=== PATIENT | male | born 1945 | race Caucasian/White ===

== ENCOUNTER → 2019-03-16 | Outpatient (CLI) | payer OTHER ==
[~2019-03-16] VITALS: Ht 182.9 cm; Wt 89.4 kg
[~2019-03-16] MED LIST: AVALIDE 300-121 EACH PO; CRESTOR10 MG PO; FLONASE 0.05%50 MCG NARES; METFORMIN HCL500 M3 PO; NORVASC5 M1 PO; SINGULAIR 10 MG10 MG PO; TRILIPIX135 MG PO; ZETIA10 MG PO
[2019-03-16 10:22] VITALS: BP 194/87
[2019-03-16 10:53] LABS: HEMATOCRIT 42.7 % (42.0-52.0); HEMOGLOBIN 14.6 gm/dL (14.0-18.0); MCH 31.3 pg (26.0-34.0); MCHC 34.3 g/dL (28.0-37.0); MCV 91.2 fL (80.0-100.0); RBC 4.68 mil/uL (4.50-6.00); RDW 12.5 % (10.5-14.5); WBC 5.8 thou/uL (4.0-11.0)
[2019-03-16 11:03] LABS: CALCIUM 9.8 mg/dL (8.5-10.1); POTASSIUM 4.5 mmol/L (3.5-5.1)
--- NOTE | 2019-03-16 13:20 | NUR ---
RASHAUN GARRETT, HERE TO DISCUSS CASE WITH PT.
--- NOTE | 2019-03-16 15:03 | NUR ---
DISCHARGE INSTRUCTIONS GIVEN. PT VERBALIZED UNDERSTANDING. WAITING ON DR FOURNIER.
--- NOTE | 2019-03-23 14:18 | CATHLAB ---
[facility] [address] [place] [address] INVASIVE PROCEDURE REPORT Name: AMANDA DEWITT [id number] Admission: 03/16/19 Attend Phys: Carl Jenkins Discharge: Date of : 49 Report #: [id number] THIS REPORT FOR: //name// APPROVED REPORT Study performed: 03/16/2019 11:39:46 Patient Details Patient Status: Out-Patient Room #: The patient is a 73 year-old male Event Personnel Carl Ritchie Forensic Chemist, Lillian Li RN RN, Catrina James RTR Scrub, Ronit Matthew RTR Scrub, Amadou Rogers Monitor, Matthew Domingo superintendent quarry Performed Left Heart Cath w/or w/o Coronaries [id number] [facility], supervision of conscious sedation Indication Positive stress test, Chest pain Procedure Narrative The Right Groin^ was infiltrated with 1% Lidocaine subcutaneous anesthesia. A PINNACLE 4FR Sheath #[id number] sheath was inserted into the RFA^. Coronary angiography was performed using coronary diagnostic catheters. The right coronary system was accessed and visualized with a JR4 catheter. The left coronary system was accessed and visualized with a JL4 catheter. Left ventricular/Aortic Valve gradient assessed via catheter pullback. Hemostasis was obtained with manual pressure following sheath removal without any complications. The patient tolerated the procedure well and there were no complications associated with the procedure. There was no hematoma. Intraoperative Conscious Sedation Sedation start time: 11.443 Case end Time: 12.11 Versed 2 mg Fluoro Time: 3.40 minutes Dose: DAP 8316.00 cGycm2 1262 mGy Contrast Type and Amount: Omnipaque 60 ml [facility] [place] [address] INVASIVE PROCEDURE REPORT Name: AMANDA DEWITT JR Room #: [facility]#: [id number] Admission: 03/16/19 Attend Phys: Carl Jenkins Discharge: Date of : 49 Report #: [id number] Coronary Angiography The patient's coronary anatomy is right dominant. Diagnostic Cath Left Main Normal origin large caliber bifurcates that anterior descending left circumflex. This distal 30-40% eccentric plaque identified which is not flow-limiting LAD Moderate caliber type III vessel which in its ostial and proximal portion is heavily calcified. This is eccentric lesion appears to be at least 60% in diameter. At this point in time a small first diagonal branch originates and is involved in the lesion. The LAD proper continues on to the second diagonal branch origin and beyond this the LAD has an eccentric 75% stenosis that involves the origin of this moderate caliber second diagonal branch the LAD then continues on to the apex terminating in the posterior apical wall is small caliber vessel Diagonal 1 Small-caliber with mild diffuse proximal lesions noted Diagonal 2 Moderate caliber vessel with a 75% ostial ostial lesion after which the vessel. She's on internal wall free of high-grade disease Circumflex Moderate caliber vessel coursing the AV groove. Early marginal branch originates after a region of heavy calcifications involve the origin of this first marginal branch. There appears to be a lesion of about 50% although poorly visualized. It then continues on giving rise to posterior wall branch without high-grade lesion OM1 Moderate caliber vessel that has a proximal lesion noted as described above OM2 Moderate caliber vessel free of high-grade disease Right Coronary Large-caliber dominant vessel of normal origin procedures and prior to the acute margin is a napkin ring lesion which is noted. Appears to delay floats is slightly. He is having continuous posterior to the crux gives rise to posterior descending artery and posterior wall circulation which are small in diameter R PDA Very small caliber vessel without significant high-grade lesions noted Left Ventriculography Left Ventriculography was not performed. Hemodynamics The aortic pressure is 199/61 mmHg with a mean of 91 mmHg. The left ventricular pressure is 178/11 mmHg with a mean of mmHg. The left ventricular end diastolic pressure is 14 mmHg. There was no gradient across the aortic valve upon pullback. Pullback from the left [facility] [address] [place] [address] INVASIVE PROCEDURE REPORT Name: AMANDA DEWITT JR Room #: REG Leslee#: [id number] Admission: 03/16/19 Attend Phys: Carl Jenkins Discharge: Date of : 49 Report #: [id number] ventricle to the aorta revealed no gradient across the aortic valve. Conclusion 1. Coronary disease, severe involving the proximal and mid LAD proximal RCA and possibly left circumflex 2. Abnormal hemodynamics with elevated left ventricular end-diastolic pressures Recommendations CABG <ELECTRONICALLY SIGNED> By: Carl Ritchie MD 03/23/19 1418 1418 141 Carl Ritchie MD /INF
--- NOTE | 2019-03-27 07:36 | HC ---
[facility] [place] [address] CONSULTATION Name: AMANDA DEWITT JR Room #: REG [facility]#: [id number] Admission: 03/16/19 Attend Phys: Carl Ritchie Discharge: Date of : 49 Report #: [id number] THIS REPORT FOR: //name// CC: Carl Valdes Coffey DATE OF SERVICE: 03/16/2019 We were asked by Dr. Ritchie to see the patient. HISTORY OF PRESENT ILLNESS: The patient is a 73-year-old with progressive shortness of breath on exertion. The patient denies chest pain. The patient originally came to attention of Cardiology because of ventricular premature contractions. The patient also has a history of hypertension and dyslipidemia. Cardiac catheterization on 03/16/2019 demonstrated severe multifocal left anterior descending stenosis. In addition, there is more modest circumflex and right coronary artery disease. Left ventricular function not assessed by ventriculogram. As mentioned, past history is positive for hypertension and dyslipidemia. MEDICATIONS: Medication at home includes Norvasc, Trilipix, Zetia, Avalide, metformin, Singulair, and Crestor. ALLERGIES: None known. FAMILY HISTORY: Mother had heart disease. Father had diabetes. SOCIAL HISTORY: The patient is . He is a never smoker. REVIEW OF SYSTEMS: GENERAL: Negative. CONSTITUTIONAL: Denies fever, weight change. EYES: Denies vision changes. HEENT: Denies headache, vertigo, hearing problems. RESPIRATORY: As mentioned shortness of breath with exertion. CARDIAC: Denies angina. We do note PVCs. SKIN: Denies rash or infection. ENDOCRINE: No tremor, no goiter. PSYCHIATRIC: No hallucination, depression, anxiety. MUSCULOSKELETAL: No bone or joint pain. IMMUNOLOGIC: No arthritides or lupus. PHYSICAL EXAMINATION: VITAL SIGNS: The patient is a pleasant fellow. He is hypertensive with a blood [facility] [address] [place] [address] CONSULTATION Name: AMANDA DEWITT Kiah NUNEZ Room #: REG [facility]#: [id number] Admission: 03/16/19 Attend Phys: Carl Ritchie Discharge: Date of : 49 Report #: [id number] pressure of 194/87, heart rate 55, respiratory rate 18, temperature 98, O2 sat 97 on room air. HEENT: No scleral icterus, no arcus. NECK: No mass, no bruit. CHEST: Clear. HEART: Rhythm regular. ABDOMEN: Soft. EXTREMITIES: No clubbing, cyanosis or edema. MUSCULOSKELETAL: No bone or joint asymmetry or deformity. NEUROLOGIC: No motor or sensory dysfunction. PSYCHIATRIC: Shows insight into problem and is oriented and appropriate and pleasant. I reviewed the cardiac catheterization findings with the patient in view of his symptoms. I have contrasted several courses, which would include simple observation, maintenance on medicine, angioplasty, and surgery. Bypass surgery would have the advantage of most definitively treating multivessel disease in a diabetic. Risks and details of surgery were discussed. Options and alternatives were reviewed. Risks include but are not limited to bleeding, infection, anesthesia risks, heart and lung problems, stroke and . The patient understands all of this and he wishes to proceed with the surgery. It is a privilege to participate in this nice fellow's care. Please let us know if we can be of further assistance. Thank you for the consult. <ELECTRONICALLY SIGNED> By: Epifanio Mares MD 03/27/19 0736 1018 1106 Epifanio Mares MD /nt
== END | disposition home or self-care (01) ==
LOC: CATH 09:29
PROVIDERS: Internal Medicine
DX: R07.9 Chest pain, unspecified (principal); I25.10 Atherosclerotic heart disease of native coronary artery without angina pectoris; R94.39 Abnormal result of other cardiovascular function study; I11.0 Hypertensive heart disease with heart failure; I50.1 Left ventricular failure, unspecified; E78.5 Hyperlipidemia, unspecified; E11.9 Type 2 diabetes mellitus without complications; Z98.890 Other specified postprocedural states; Z79.899 Other long term (current) drug therapy

== ENCOUNTER → 2019-03-22 | Outpatient (CLI) | payer OTHER | LOC: ULTRA 13:10 | DX: Z01.818 Encounter for other preprocedural examination (principal); I25.119 Atherosclerotic heart disease of native coronary artery with unspecified angina pectoris ==

== ENCOUNTER 2019-03-29 05:55 | Inpatient (IN) | payer OTHER ==
[2019-03-22 14:08] LABS: ABSOLUTE NEUTROPHILS 2.8 thou/uL (1.4-8.2); BASOPHILS 0.7 % (0.0-2.0); EOSINOPHILS 5.2 % (0.0-3.0); HEMATOCRIT 44.3 % (42.0-52.0); LYMPHOCYTES 35.8 % (24.0-44.0); MCH 31.1 pg (26.0-34.0); MCHC 33.8 g/dL (28.0-37.0); MONOCYTES 9.4 % (1.0-8.0); PLATELET COUNT 137 thou/uL (150-400); POLYS 48.9 % (36.0-66.0); RBC 4.81 mil/uL (4.50-6.00); RDW 12.9 % (10.5-14.5); WBC 5.8 thou/uL (4.0-11.0)
[2019-03-22 14:22] LABS: URINE BILIRUBIN NEGATIVE (Negative); URINE BLOOD NEGATIVE (Negative); URINE CLARITY CLEAR; URINE COLOR YELLOW; URINE GLUCOSE-RANDOM* 2+ (Negative); URINE KETONES NEGATIVE (Negative); URINE LEUKOCYTES-REFLEX NEGATIVE (Negative); URINE NITRITE-REFLEX NEGATIVE (Negative); URINE PROTEIN (DIPSTICK) NEGATIVE (Negative); URINE SPECIFIC GRAVITY >= 1.030 (1.005-1.035); URINE UROBILINOGEN 0.2 E.U./dl (0.2-1.0)
[2019-03-22 14:28] LABS: APTT 27.3 Seconds (24.5-32.8); PROTIME 10.2 Seconds (9.3-11.4)
[2019-03-22 14:39] LABS: ALBUMIN 4.1 g/dL (3.4-5.0); CREATININE 0.9 mg/dL (0.7-1.3); POTASSIUM 4.1 mmol/L (3.5-5.1); TOTAL BILIRUBIN 0.5 mg/dL (<0.1-1.0); TOTAL PROTEIN 7.9 g/dL (6.4-8.2)
[2019-03-23 01:10] LABS: GLYCOHEMOGLOBIN (HGB A1C) 7.1 % (4.8-5.6)
--- NOTE | 2019-03-23 08:30 | EKG ---
[facility] [place] [address] ELECTROCARDIOGRAM REPORT Name: AMANDA DEWITT Kiah NUNEZ Room #: PRE IN ..#: [id number] Admission: Attend Phys: Epifanio Mares MD Discharge: Date of : 49 Report #: [id number] THIS REPORT FOR: //name// [facility] Test Date: 2019-03-22 Test Time: 14:00:35 Pat Name: AMANDA DEWITT Department: Room: Gender: M Furniture Sales Associate: DIALLO WHITE : 1945 Requested By: Epifanio Mares Order Number: [id number] MD: Dwain Garcia Measurements Intervals [place] Rate: 54 P: -1 RI: 248 QRS: 22 QRSD: 112 T: 106 QT: 474 QTc: 450 Interpretive Statements Sinus rhythm Ventricular trigeminy Prolonged RI interval Abnormal T, consider ischemia, lateral leads No previous ECG available for comparison Electronically Signed On 03-23-2019 8:29:50 LVN LPN by Dwain Garcia [email or web address] <ELECTRONICALLY SIGNED> By: Dwain Garcia MD, [facility] 03/23/[address] [facility] Dwain Garcia MD, FACC /EPI
[2019-03-29] VITALS (9 sets, daily range): BP systolic 91–132; BP diastolic 27–95
[~2019-03-29] VITALS: Ht 182.9 cm; Wt 92.5 kg
[2019-03-29 12:31] LABS: MCH 31.8 pg (26.0-34.0); MCHC 34.2 g/dL (28.0-37.0); MCV 92.9 fL (80.0-100.0); RBC 3.08 mil/uL (4.50-6.00); RDW 12.5 % (10.5-14.5); WBC 9.2 thou/uL (4.0-11.0)
[2019-03-29 12:34] LABS: HEMATOCRIT 28.6 % (42.0-52.0); HEMOGLOBIN 9.8 gm/dL (14.0-18.0)
[2019-03-29 12:47] LABS: APTT 25.2 Seconds (24.5-32.8); FIBRINOGEN 133.3 mg/dL (210-360); INR 1.5
[2019-03-29 12:50] LABS: PROTIME 15.4 Seconds (9.3-11.4)
[2019-03-29 13:13] LABS: POC BE 0 mmol/L (-2.0 to +3.0); POC CA IONIZED 4.9 mg/dL (4.5-5.3); POC GLUCOSE 150 mg/dL (70-99); POC HCO3 25.9 mmol/L (22.0-26.0); POC HEMOGLOBIN 12.2 g/dL (14.0-18.0); POC POTASSIUM 4.6 mmol/L (3.5-5.1); POC SODIUM 137 mmol/L (136-145); POC pCO2 47.8 mmHg (35.0-45.0); POC pH 7.341 (7.360-7.450)
[2019-03-29 13:13] LABS: POC BE -1 mmol/L (-2.0 to +3.0); POC CA IONIZED 4.8 mg/dL (4.5-5.3); POC GLUCOSE 146 mg/dL (70-99); POC HCO3 24.6 mmol/L (22.0-26.0); POC HEMOGLOBIN 12.2 g/dL (14.0-18.0); POC POTASSIUM 4.7 mmol/L (3.5-5.1); POC SODIUM 138 mmol/L (136-145); POC pCO2 45.8 mmHg (35.0-45.0); POC pH 7.338 (7.360-7.450)
[2019-03-29 13:14] LABS: POC BE 0 mmol/L (-2.0 to +3.0); POC CA IONIZED 4.5 mg/dL (4.5-5.3); POC GLUCOSE 138 mg/dL (70-99); POC HEMOGLOBIN 9.9 g/dL (14.0-18.0); POC SODIUM 138 mmol/L (136-145); POC pCO2 41.5 mmHg (35.0-45.0); POC pH 7.388 (7.360-7.450)
[2019-03-29 13:14] LABS: POC BE -1 mmol/L (-2.0 to +3.0); POC CA IONIZED 4.4 mg/dL (4.5-5.3); POC GLUCOSE 137 mg/dL (70-99); POC HEMOGLOBIN 9.9 g/dL (14.0-18.0); POC POTASSIUM 4.8 mmol/L (3.5-5.1); POC SODIUM 136 mmol/L (136-145); POC pCO2 48.3 mmHg (35.0-45.0); POC pH 7.323 (7.360-7.450)
[2019-03-29 13:14] LABS: POC BE 0 mmol/L (-2.0 to +3.0); POC CA IONIZED 4.4 mg/dL (4.5-5.3); POC GLUCOSE 148 mg/dL (70-99); POC HCO3 24.9 mmol/L (22.0-26.0); POC HEMOGLOBIN 8.8 g/dL (14.0-18.0); POC POTASSIUM 4.7 mmol/L (3.5-5.1); POC SODIUM 136 mmol/L (136-145); POC pCO2 40.6 mmHg (35.0-45.0); POC pH 7.396 (7.360-7.450)
[2019-03-29 13:14] LABS: POC BE 1 mmol/L (-2.0 to +3.0); POC CA IONIZED 4.5 mg/dL (4.5-5.3); POC GLUCOSE 139 mg/dL (70-99); POC HEMOGLOBIN 9.5 g/dL (14.0-18.0); POC POTASSIUM 4.7 mmol/L (3.5-5.1); POC SODIUM 138 mmol/L (136-145); POC pCO2 38.2 mmHg (35.0-45.0); POC pH 7.424 (7.360-7.450)
[2019-03-29 13:14] LABS: POC BE -5 mmol/L (-2.0 to +3.0); POC CA IONIZED 4.9 mg/dL (4.5-5.3); POC GLUCOSE 136 mg/dL (70-99); POC HCO3 21.2 mmol/L (22.0-26.0); POC HEMOGLOBIN 10.5 g/dL (14.0-18.0); POC POTASSIUM 4.1 mmol/L (3.5-5.1); POC SODIUM 139 mmol/L (136-145); POC pCO2 40.2 mmHg (35.0-45.0); POC pH 7.331 (7.360-7.450)
[2019-03-29 13:14] LABS: POC BE 1 mmol/L (-2.0 to +3.0); POC CA IONIZED 4.9 mg/dL (4.5-5.3); POC GLUCOSE 178 mg/dL (70-99); POC HCO3 25.4 mmol/L (22.0-26.0); POC HEMOGLOBIN 12.6 g/dL (14.0-18.0); POC POTASSIUM 4.7 mmol/L (3.5-5.1); POC SODIUM 137 mmol/L (136-145); POC pCO2 39.7 mmHg (35.0-45.0); POC pH 7.413 (7.360-7.450)
[2019-03-29 13:14] LABS: POC BE -4 mmol/L (-2.0 to +3.0); POC CA IONIZED 5.1 mg/dL (4.5-5.3); POC GLUCOSE 157 mg/dL (70-99); POC HCO3 21.8 mmol/L (22.0-26.0); POC HEMOGLOBIN 9.2 g/dL (14.0-18.0); POC POTASSIUM 4.2 mmol/L (3.5-5.1); POC SODIUM 138 mmol/L (136-145); POC pCO2 40.5 mmHg (35.0-45.0); POC pH 7.338 (7.360-7.450)
[2019-03-29 13:48] LABS: BE(vivo) -6.2 mmol/L (-2 to +3); HCO3 20.6 mmol/L (22.0-26.0); PCO2 45.9 mmHg (35.0-45.0); sO2 98.2 % (92.0-98.0)
[2019-03-29 14:15] LABS: APTT 26.4 Seconds (24.5-32.8); INR 1.2; PROTIME 12.2 Seconds (9.3-11.4)
[2019-03-29 14:16] LABS: CALCIUM 8.4 mg/dL (8.5-10.1); MAGNESIUM 2.3 mg/dL (1.8-2.4); POTASSIUM 4.2 mmol/L (3.5-5.1)
[2019-03-29 16:46] LABS: BE(vivo) -8.1 mmol/L (-2 to +3); PCO2 33.2 mmHg (35.0-45.0); PO2 112.8 mmHg (80.0-100.0); sO2 97.9 % (92.0-98.0)
[2019-03-29 16:47] LABS: pH 7.326 (7.360-7.450)
--- NOTE | 2019-03-29 17:14 | NUR ---
1345: PT TO ROOM WITH OR STAFF, DR. SALAS, DR. FOURNIER AND SAMAN GARRETT PRESENT. PT PLACED ON MONITOR. NO DRIPS INFUSING AT THIS TIME. INITIAL BLOOD PRESSURE 92/43. HR 41 - PER DR. MALONE AND DR. FOURNIER PT HEART RATE HAS BEEN BRADYCARDIC AND NO NEED TO PACER IF BLOOD PRESSURES MAINTAIN IN APPROPRIATE LIMITS. CHEST TUBE MARKED AND PLACED TO -20 SUCTION. RT AT BEDSIDE TO PLACE PATIENT ON VENT. SETTINGS 600/12/60/5/. AVNI HUGGER PLACED. 1400: 1 BOTTLE ALBUMIN GIVEN. ABG'S COMMUNICATED TO DR. FOURNIER AT BEDSIDE. ORDERS TO INCREASE VENT RATE TO 16 1500: ADDITIONAL BOTTLE ALBUMIN GIVE. PT WAKING UP, WIGGLING TOES. 1515: BLOOD SUGAR 174 - INSULIN GTT INITIATED AT 2 UNIT/HR. PACEMAKER TURNED ON, FOR HYPOTENSION AND BRADYCARDIA 1530: DR FOURNIER UPDATED ON PT STATUS, PT STARTED ON LEVOPHED 1600: DR. FOURNIER IN PT ROOM. TURNED PACEMAKER OFF. UNDERLYING RHYTHM IRREGULAR IN THE 40'S, PRESSURES MAINTAINING ON 2 MCG LEVOPHED. CPAP TRIAL INITATED BY RT. SEE ICU FLOW SHEET FOR VITAL SIGNS AND MEDICATION TITRATIONS. HOURLY OUTPUTS RECORDED.
[2019-03-29 17:36] LABS: BE(vivo) -3.9 mmol/L (-2 to +3); HCO3 20.9 mmol/L (22.0-26.0); PCO2 37.4 mmHg (35.0-45.0); PO2 131.8 mmHg (80.0-100.0); pH 7.366 (7.360-7.450); sO2 98.6 % (92.0-98.0)
[2019-03-29 17:47] LABS: HEMATOCRIT 31.5 % (42.0-52.0); HEMOGLOBIN 10.8 gm/dL (14.0-18.0); MCH 31.5 pg (26.0-34.0); MCHC 34.2 g/dL (28.0-37.0); MCV 92.1 fL (80.0-100.0); RBC 3.42 mil/uL (4.50-6.00); RDW 12.4 % (10.5-14.5); WBC 11.1 thou/uL (4.0-11.0)
[2019-03-29 17:52] LABS: CALCIUM 8.4 mg/dL (8.5-10.1); CREATININE 1.1 mg/dL (0.7-1.3); POTASSIUM 4.2 mmol/L (3.5-5.1)
--- NOTE | 2019-03-29 18:10 | NUR ---
PT EXTUBATED AT 1745 BY RT. TOLERATED WELL. ON FACESHIELD AT 50 PERCENT. LEVOPHED RESTARTED. FENTANYL GIVEN FOR PAIN. PT CURRENTLY RESTING COMFORTABLY.
[2019-03-30] VITALS (18 sets, daily range): BP systolic 99–160; BP diastolic 34–143
[2019-03-30 06:16] LABS: HEMATOCRIT 31.4 % (42.0-52.0); HEMOGLOBIN 10.9 gm/dL (14.0-18.0); MCH 31.9 pg (26.0-34.0); MCHC 34.6 g/dL (28.0-37.0); MCV 92.4 fL (80.0-100.0); RBC 3.4 mil/uL (4.50-6.00); RDW 12.6 % (10.5-14.5); WBC 9.3 thou/uL (4.0-11.0)
[2019-03-30 06:31] LABS: CALCIUM 8.3 mg/dL (8.5-10.1); CREATININE 1.1 mg/dL (0.7-1.3); MAGNESIUM 2.2 mg/dL (1.8-2.4); POTASSIUM 4.3 mmol/L (3.5-5.1)
--- NOTE | 2019-03-30 07:45 | NUR ---
SEE CRITICAL CARE FLOWSHEET FOR VS, HEMODYNAMICS AND EVENTS. PT PAIN CONTROLLED WELL WITH HYDROCODONE. ON 8L HFC FROM FS. GOOD COUGH EFFORT, OCCAS PRODUCTIVE. USING YAUNKER. IS UP TO 500. MINIMAL DRNGE FROM MSCT ET PLEURAL. CONTROLLED BP WITH CARDENE TO KEEP <160. UO ADEQUATE. BLOOD SUGARS CONTROLLED WITH INSULIN GTT-SEE BS FLOWSHEET FOR GTT RATE. AWAITING OFF CARDENE TO GET UP TO CHAIR. SEE Web Designed Rooms FOR COMPLETE ASSESSMENT
--- NOTE | 2019-03-30 08:07 | EKG ---
[place] [address] [email or web address] [place] [address] ELECTROCARDIOGRAM REPORT Name: AMANDA DEWITT Room #: 242-P ADM IN M.R.#: [id number] Admission: 03/29/19 Attend Phys: Epifanio Mares MD Discharge: Date of : 49 Report #: [id number] THIS REPORT FOR: //name// [facility] Test Date: 2019-03-29 Test Time: 16:49:39 Pat Name: AMANDA DEWITT Department: Room: [facility] Gender: M Substitute Bus Driver: Raquel AYON : 1945 Requested By: Gerry Palomino Order Number: [id number] MD: Dwain Garcia Measurements Intervals [place] Rate: 44 P: [place]: QRS: 56 QRSD: 113 T: 53 QT: 553 QTc: 473 Interpretive Statements Junctional rhythm Borderline intraventricular conduction delay Compared to ECG 03/22/2019 14:00:35 Sinus rhythm no longer present Ventricular premature complex(es) no longer present Electronically Signed On 03-30-2019 8:07:11 LINUX UNIX SYSTEM ADMINISTRATOR by Dwain Garcia [email or web address] <ELECTRONICALLY SIGNED> By: Dwain Garcia MD, [facility] 03/30/19 08 48 48 Dwain Garcia MD, [facility] /EPI
--- NOTE | 2019-03-30 08:14 | EKG ---
[place] [address] [email or web address] [address] ELECTROCARDIOGRAM REPORT Name: AMANDA DEWITT Room #: 242-P ADM IN M.R.#: [id number] Admission: 03/29/19 Attend Phys: Epifanio Mares MD Discharge: Date of : 49 Report #: [id number] THIS REPORT FOR: //name// [facility] Test Date: 2019-03-30 Test Time: 07:12:01 Pat Name: AMANDA DEWITT Department: Room: 242 P Gender: M Cancer Spec: Kiah OLVERA : 1945 Requested By: Gerry Palomino Order Number: [id number] MD: Dwain Garcia Measurements Intervals [place] Rate: 49 P: 0 GA: 119 QRS: 20 QRSD: 110 T: 29 QT: 469 QTc: 424 Interpretive Statements Sinus rhythm with competing junctional rhythm Ventricular trigeminy Borderline short GA interval Left ventricular hypertrophy No previous ECGs available for comparison Electronically Signed On 03-30-2019 8:14:26 DIRECTOR HOME HEALTH by Dwain Garcia [email or web address] <ELECTRONICALLY SIGNED> By: Dwain Garcia MD, [facility] 03/30/1914 1 1 Dwain Garcia MD, [facility] /EPI
--- NOTE | 2019-03-30 09:09 | NUR ---
Nutrition: S/P CABG x 5. POD 1. Consult received for diet instruction. RD will followup when closer to D/C and out of ICU to assess education needs.
--- NOTE | 2019-03-30 12:42 | NUR ---
Case opened to follow for dc planning. Pt is currently in ICU s/p CABGx5 yesterday. Transfer And Line Up Worker visited with the pt and his in the room. Pt currently extubated and up in the chair. He indicates that he is retired and remains active. He is indep with gait and adl's and drives. His is supportive and able to help care for him at dc. Cm role introduced. Therapy has started working with the pt. He does have a flight of stairs to his bedroom and bath. His goal is to dc home with outpt f/u. Will follow along should dc needs arise.
--- NOTE | 2019-03-30 16:11 | NUR ---
ASSUMED CARE @ 0700 03/30/19, PT ASSESSMENTS AND VSS COMPLETE PER ICU PROTOCOL. AT INTIAL ENCOUNTER PT STILL IN BED, SWAN @ [address] CARDENE, INSULIN AND FLUIDS STILL RUNNING. PT ON 8L OF 02 SATS IN THE HIGH 80'S, RASHAUN TO THE BEDSIDE. CARDENE, INSULIN AND FLUIDS GTT DC'D. SWAN DC'D @ 0830 NO COMPLICATIONS NOTED. 1310, ARTERIAL SBP 160-170, RASHAUN CALLED, NORVASC ORDERED. MEDIATINAL CHEST TUBES OUTPUT 15-20ML/HR, TUBE D'CD @ 1545, NO COMPLICATIONS NOTED.
[2019-03-31] VITALS (14 sets, daily range): BP systolic 113–148; BP diastolic 41–65
--- NOTE | 2019-03-31 05:42 | NUR ---
AOX4. MEDICATED FOR PAIN RELIEF. FEBRILE DURING THE NIGHT. BP STABLE, SYSTOLIC WIHTIN THE 120S TO 130S. ON 5L, NO SOA WHILE AT REST. PLUERAL CT IN PLACE, OUTPUT NOTED HOURLY. INCISION SITES DRESSING C/D/I. PT PROGRESSING TOWARDS GOALS. WILL CONTINUE TO MONITOR.
[2019-03-31 05:43] LABS: HEMATOCRIT 29.8 % (42.0-52.0); HEMOGLOBIN 10.1 gm/dL (14.0-18.0); MCH 31.5 pg (26.0-34.0); MCHC 33.8 g/dL (28.0-37.0); RBC 3.2 mil/uL (4.50-6.00); RDW 12.9 % (10.5-14.5); WBC 7.4 thou/uL (4.0-11.0)
[2019-03-31 05:52] LABS: CALCIUM 8.6 mg/dL (8.5-10.1); CREATININE 1.1 mg/dL (0.7-1.3); POTASSIUM 4.7 mmol/L (3.5-5.1)
--- NOTE | 2019-03-31 12:55 | NUR ---
0700-ASSUMMED CARE OF PT.--VW 0900-PT UP IN CHAIR ON MY ARRIVAL. DIVYACV STATION OPERATOR,RASHAUN,ELLIOTT PA,AVTAR FOURNIER & RITU IN TO SEE.--VW 1130-WALKED IN ROOM BY Luke EARLIER. IMPROVING W PULM TOILET.MUCH ENC GIVEN.INSTRUCTED NOT TO LET PAIN GET AHEAD OF HIM. PT STATES I'M NOT HAVING ANY PAIN,JUST A ITTLE SOB.DID C/O FEELING LIGHTHEADED X1 VERY BRIEF EPISODE, NO CHANGE IN V.S.REPORT CALLED TO KEVIN,CCU RN & PT TRANSF VIA W/C TO 210.PT WANTING TO STAY UP-INSTRUCTED STAY UP FOR LUNCH THEN TAKE A PAINPILL IF HE NEEDS IT,THEN A NAP.STATES HE WANTS TO WALK IN THE [facility] LATER TODAY. AT BEDSIDE,UPDATED ON POC. ALL BELONGINGS W PT.CARE TURNED OVER TO KEVIN.--VW
--- NOTE | 2019-03-31 19:51 | NUR ---
PT ARRIVED TO UNIT FROM ICU AT APPROX 1130 ACCOMPANIED BY SPOUSE. PT ALERT AND ORIENTED, VSS, C/O PAIN AT CHEST TUBE SITE- MANAGED WITH PO PAIN MEDS. O2 SATS WNL ON 2L O2. REMAINING CHEST TUBE PULLED BY CTS THIS SHIFT. PT UP WITH PHYS THERAPY AND CARDIAC REHAB TOLERATING WELL. STERNAL PRECAUTIONS IN PLACE. MELISSA DRESSING REMAINS CDI, LEFT LEG DRESSINGS REMAIN CDI. IS AT BEDSIDE AND ENCOURAGED-- PT COOPERATIVE AND WILLING. PT DENYING OF NEEDS/CONCERNS AT THIS TIME. INSRUCTED TO CALL WITH NEEDS. CONTINUING TO MONITOR.
[2019-04-01 04:03] VITALS: BP 132/49
--- NOTE | 2019-04-01 04:41 | NUR ---
ASSUMED PT CARE AT 1900. PT IS ALERT AND ORIENETED WITH NO SIGN OF DISTRESS NOTED IN PT. PT IS STABLE POST CABG. DENIES ANY PAIN. ASSESSMENT COMPLETED AND DOCUMENTED. SCHEDULED MEDS ADMINISTERED TO PT. PT TOLERATED PO INTAKE. PAIN MED ADMINSITERED REQUESTED. DENIES ANY FURTHER NEEDS AT THIS TIME.
[2019-04-01 07:04] VITALS: BP 119/45
[2019-04-01 11:05] VITALS: BP 155/65
--- NOTE | 2019-04-01 11:17 | NUR ---
AAOX4. WORKING WITH CARDIAC REHAB AND PT. NO COMPLAINTS. DENIES PAIN. UP TO BEDSIDE CHAIR TO EAT. I.S., TCDB ENCOURAGED. SA W/PVC'S PER TELE. WILL CONTINUE TO FOLLOW CLOSELY.
[2019-04-01 15:33] VITALS: BP 130/60
--- NOTE | 2019-04-01 17:07 | NUR ---
Chart reveiwed and case discussed with the care team. Pt is progress well postop with possible dc to home this weekend. Outpt f/u anticipated. No cm interventions indicated.
[2019-04-01 20:00] VITALS: BP 134/62
[2019-04-02 00:25] VITALS: BP 149/56
[2019-04-02 03:29] LABS: HEMATOCRIT 29.7 % (42.0-52.0); HEMOGLOBIN 10.3 gm/dL (14.0-18.0); MCH 32.1 pg (26.0-34.0); MCHC 34.6 g/dL (28.0-37.0); MCV 92.7 fL (80.0-100.0); RBC 3.21 mil/uL (4.50-6.00); RDW 12.6 % (10.5-14.5); WBC 6.8 thou/uL (4.0-11.0)
[2019-04-02 03:30] LABS: CALCIUM 8.8 mg/dL (8.5-10.1); CREATININE 0.9 mg/dL (0.7-1.3); POTASSIUM 3.8 mmol/L (3.5-5.1)
--- NOTE | 2019-04-02 04:10 | NUR ---
ASSESSMENT DOCUMENTED.PT BEEN RESTING IN NO ACUTE DISTRESS.A/OX4.VSS.S/P CABG X5 POST OP#4.SURIGAL INCISIONS COVERED WITH DRESSING.MELISSA DRESSING CDI TO STERNUM.PT ON SR/BIGEMINY RHYTHM ON MONITOR UP AD LEATHA TO BR.IS TOLERATED.RA W/O RESP DISTRESS.DENIES PAIN OR ANY DISTRESS AT THIS TIME.WILL CONT TO MONITOR PER POC.POSSIBLE DISCHARGE TODAY.
[2019-04-02 06:34] VITALS: BP 150/52
[2019-04-02 07:21] VITALS: BP 146/57
[2019-04-02] MEDS ORDERED: FERREX 150 PLU1 EAC1 PO (09:09)
[2019-04-02] MEDS ORDERED: ADULT LOW DOSE81 MG PO (09:10)
[2019-04-02] MEDS ORDERED: HYDROCODON-ACE1 EAC7 PO (09:10)
[2019-04-02] MEDS ORDERED: TOPROL XL25 MG PO (09:14)
[2019-04-02 14:06] VITALS: BP 146/57
--- NOTE | 2019-04-02 20:55 | NUR ---
ASSUMED CARE OF PATIENT AT 0700. ASSESSMENT CHARTED. STANDING WEIGHT COMPLETED. PATIENT IS ANXIOUS TO GO HOME. NEW PROVENA DRESSING PROVIDED BY DR. FOURNIER AND PATIENT ALLOWED TO SHOWER. PATIENT'S SHEETS WERE CHANGED AND NEW PROVENA WAS PLACED. PATIENT STATES THAT HE FEELS BETTER THAN HE DID WHEN HE ARRIVED. HE IS AWARE OF HIS MOVEMENT/LIFTING RESTRICTIONS AND IS COMPLIANT WITH THEM. PATIENT'S IS AT THE BEDSIDE. IV AND TELE REMOVED. PATIENT TAKEN TO THE [facility] ENTRANCE VIA WHEELCHAIR AND DRIVEN HOME BY HIS .
--- NOTE | 2019-04-03 17:20 | O ---
[facility] [place] [address] OPERATIVE REPORT Name: AMANDA DEWITT JR Room #: 210-P [facility] IN M.R.#: [id number] Admission: 03/29/19 Attend Phys: Epifanio Mares MD Discharge: 04/02/19 Date of : 49 Report #: [id number] THIS REPORT FOR: //name// CC: Epifanio Martines DATE OF SERVICE: 03/29/2019 PREOPERATIVE DIAGNOSIS: Coronary artery disease. POSTOPERATIVE DIAGNOSIS: Coronary artery disease. OPERATION: Coronary artery bypass x 5 including left internal mammary artery to left anterior descending artery, saphenous vein to diagonal 2, marginal 1, and marginal 2, and saphenous vein to posterior descending artery. SURGEON: Dr. Epifanio Mares. LANDFILL GAS COLLECTION OPERATOR: GERRY Tesfaye. ANESTHESIA: General. INDICATIONS: The patient is a 73-year-old seen for Dr. Ritchie. The patient has an important 3-vessel coronary artery disease, but most particularly, left anterior descending stenosis proximally and in the midportion. Left ventricular function is satisfactory by echo. FINDINGS AND TECHNIQUE: After general anesthesia was established, left greater saphenous vein was harvested using an endoscopic approach and prepared for use as a conduit. Exposure was obtained through median sternotomy. Left internal mammary artery was harvested. Pericardial well was made. Cannulation sutures were placed. Heparin was given. Aorta was cannulated. Right atrium was cannulated. Cardioplegia needle was positioned in the aortic root. Retrograde cardioplegic catheter was placed in the coronary sinus. Cardiopulmonary bypass was established. Aorta was cross clamped. Antegrade and then retrograde cardioplegia were given. Ice was poured in the pericardial well. The heart was stopped. During electromechanical arrest, the distal anastomoses were performed and an end-to-side anastomosis was made between vein and the posterior descending artery. This was a small vessel, measuring 1.3 mm. I had hoped to make a bypass to the right coronary artery itself, but where we were able to expose it in the AV groove, there was a stent and distal to that, it was covered by a vein. [facility] [address] [place] [address] OPERATIVE REPORT Name: AMANDA DEWITT JR Room #: 210-P [facility] IN M.R.#: [id number] Admission: 03/29/19 Attend Phys: Epifanio Mares MD Discharge: 04/02/19 Date of : 49 Report #: [id number] Cold cardioplegia was given. A separate segment of vein was sewn in end-to-side fashion to the second marginal artery. This was a 1.5 mm vessel. Cold cardioplegia was given. Same segment of vein was sewn in [id number]-aipm fashion to the first marginal artery. This was a 1.6 mm vessel. Cold cardioplegia was given. Same segment of vein was sewn in agcq-[id number]-pvmh fashion to the second diagonal. This was a 1.3 mm vessel. Cold cardioplegia was given. Left internal mammary artery was sewn in end-to-side fashion to the left anterior descending artery. The LAD had diffuse disease even in areas that were angiographically normal and we made a bypass to the more distal segment of the artery, where it seemed freer of disease. It measured 1.4 mm in this area. The anastomosis was checked with the temperature technique. Cold cardioplegia was given. Two proximal anastomoses were performed. When these were complete, warm retrograde cardioplegia was given followed by warm continuous blood in the coronary sinus. When this infusion was complete, the crossclamp was removed and de-airing maneuvers were performed. The anastomoses were inspected and found to be satisfactory. As the patient warmed, nice cardiac activity resumed, chest tubes and pacing wires were placed, and a marker was placed around the proximal anastomoses. When the patient was warm, he was weaned from cardiopulmonary bypass. Venous cannula was removed. Protamine was given. The aortic cannula was removed. Flows were measured in the bypass grafts. When hemostasis was satisfactory, chest was irrigated with the antibiotic solution and closed in the usual fashion. The patient was taken to the Intensive Care Unit in good condition having tolerated the procedure well. All counts were reported as correct. <ELECTRONICALLY SIGNED> By: Epifanio Mares MD 04/03/19 1720 1622 1657 Epifanio Mares MD /nt
--- NOTE | 2019-04-04 16:01 | EKG ---
[place] [address] [facility] [place] [address] ELECTROCARDIOGRAM REPORT Name: RENATEAMANDA Dupont JR Room #: 210-P DIS IN M.R.#: [id number] Admission: 03/29/19 Attend Phys: Epifanio Mares MD Discharge: 04/02/19 Date of : 49 Report #: [id number] THIS REPORT FOR: //name// [facility] Test Date: 2019-04-02 Test Time: 07:26:00 Pat Name: AMANDA DEWITT Department: Room: 210 P Gender: M Shell Machine Operator: Raf DALY : 1945 Requested By: Gerry Palomino Order Number: [id number] MD: Rehan Ybarra Measurements Intervals [place] Rate: 77 P: [place]: QRS: 43 QRSD: 111 T: 48 QT: 432 QTc: 489 Interpretive Statements Sinus rhythm with Ventricular bigeminy Baseline wander in lead(s) V5 Compared to ECG 03/30/2019 07:12:01 Electronically Signed On 04-04-2019 16:01:19 DIRECTOR OF REVENUE CYCLE MANAGEMENT by Rehan Ybarra [email or web address] <ELECTRONICALLY SIGNED> By: Rehan Ybarra MD 04/04/19 1601 0726 Rehan Ybarra MD /EPI
== END 2019-04-02 14:22 | disposition home or self-care (01) | DRG 236 ==
LOC: ICU 05:55 → TBA 05:55 → PRE 08:25 → ICU 13:38 → 2N 03-31 11:40
PROVIDERS: Physician Assistant; ADMIT Surgery Vascular Surgery
PROC: 05HM33Z Insertion of Infusion Device into Right Internal Jugular Vein, Percutaneous Approach (ICD-10-PCS; principal; 2019-03-29)
PROC: 021309W Bypass Coronary Artery, Four or More Arteries from Aorta with Autologous Venous Tissue, Open Approach (ICD-10-PCS; principal; 2019-03-29)
PROC: 02100Z9 Bypass Coronary Artery, One Artery from Left Internal Mammary, Open Approach (ICD-10-PCS; principal; 2019-03-29)
PROC: 5A1221Z Performance of Cardiac Output, Continuous (ICD-10-PCS; principal; 2019-03-29)
PROC: 06BQ4ZZ Excision of Left Saphenous Vein, Percutaneous Endoscopic Approach (ICD-10-PCS; principal; 2019-03-29)
DX: I25.10 Atherosclerotic heart disease of native coronary artery without angina pectoris (principal); D62 Acute posthemorrhagic anemia; J98.11 Atelectasis; I49.3 Ventricular premature depolarization; E78.5 Hyperlipidemia, unspecified; I10 Essential (primary) hypertension; E78.00 Pure hypercholesterolemia, unspecified; I73.9 Peripheral vascular disease, unspecified; I65.29 Occlusion and stenosis of unspecified carotid artery; E11.51 Type 2 diabetes mellitus with diabetic peripheral angiopathy without gangrene; Z79.899 Other long term (current) drug therapy; Z90.49 Acquired absence of other specified parts of digestive tract; Z28.21 Immunization not carried out because of patient refusal
CPT/HCPCS: 10078; 10081; 10203; 47000; 47001; 47002; 47297; 48888; 50010; 50249; 50409; 50456; 50498; 50668; 51301; 52131; 52259; 52314; 53327; 53358; 54118; 56455; 56524; 56525; 56526; 56527; 56528; 56531; 56534; 56668; 56760; 56898; 57093; 57116; 57167; 62110; 62950; 65003; 65020; 65047; 65090; 65120; 65135

== ENCOUNTER → 2019-05-05 | Outpatient (CLI) | payer OTHER ==
[~2019-05-05] MED LIST changes: +ADULT LOW DOSE81 MG PO; +FERREX 150 PLU1 EAC1 PO; +HYDROCODON-ACE1 EAC7 PO; +TOPROL XL25 MG PO
== END ==
LOC: SJCVC 10:10
DX: I25.810 Atherosclerosis of coronary artery bypass graft(s) without angina pectoris (principal); E11.9 Type 2 diabetes mellitus without complications; N52.1 Erectile dysfunction due to diseases classified elsewhere; E78.5 Hyperlipidemia, unspecified; I10 Essential (primary) hypertension; Z79.82 Long term (current) use of aspirin; Z79.899 Other long term (current) drug therapy; Z95.1 Presence of aortocoronary bypass graft